=== PATIENT | male | born 1955 | race Two or more races ===

== ENCOUNTER 2021-08-28 20:58 | Inpatient (IN) | payer BC, OTHER ==
[~2021-08-28] VITALS: Ht 188 cm; Wt 105.0 kg
[2021-08-28 23:13] LABS: Basophils # (auto) 0.1 10 ^3/uL (0-0.2); Basophils % (auto) 0.6 % (0.0-2.0); Eosinophils # (auto) 0.3 10 ^3/uL (0-0.8); Eosinophils % (auto) 2.3 % (0.0-7.0); Hematocrit 41.6 % (41.0-53.0); Hemoglobin 13.6 g/dL (13.5-17.5); Lymphocytes # (auto) 1.5 10 ^3/uL (0.4-5.4); Lymphocytes % (auto) 10.8 % (10.0-50.0); Mean Corpuscular Hemoglobin 28.1 pg (28.0-32.0); Mean Corpuscular Hgb Conc. 32.7 g/dL (32.0-36.0); Monocytes # (auto) 0.9 10 ^3/uL (0-1.3); Monocytes % (auto) 6.5 % (0.0-12.0); Neutrophils # (auto) 11.3 10 ^3/uL (1.6-8.6); Neutrophils % (auto) 79.8 % (37.0-80.0); Nucleated Red Blood Cells % 0.1 %; Red Blood Cells 4.83 10^6/uL (4.5-5.90); Red Cell Distribution Width 13.7 % (11.8-14.3); White Blood Cell 14.1 10^3/uL (4.4-10.8)
[2021-08-28 23:31] LABS: Albumin 3.5 g/dL (3.4-5.0); Calcium 8.7 mg/dL (8.5-10.1); Potassium 4.6 mmol/L (3.5-5.1)
[2021-08-28 23:36] LABS: BUN/Creatinine Ratio 12.8; Bilirubin, Total 0.6 mg/dL (0.2-1.0); Total Protein 6.8 g/dL (6.4-8.2)
[2021-08-29] MEDS ORDERED: MORPHINE SULFATE INJECTION 2 MG/ML SYRG IV PRN (06:15)
[2021-08-29] MEDS ORDERED: DEXTROSE (50%) 50ML SYRG IV PRN (06:15)
[2021-08-29] MEDS ORDERED: NITROGLYCERIN 0.4 MG SL TAB SL PRN (06:15)
[2021-08-29] MEDS ORDERED: ACETAMINOPHEN 325 MG TAB PO PRN (06:15)
[2021-08-29] MEDS ORDERED: ONDANSETRON HCL 4 MG/2 ML VIAL IV PRN (06:15)
[2021-08-29] MEDS ORDERED: TEMAZEPAM 15 MG CAP PO PRN (06:15)
[2021-08-29] MEDS ORDERED: ENOXAPARIN SOD 100 MG/1 ML SYRINGE SC ONE (06:15)
[2021-08-29] MEDS: InsuLIN REG 1unit/0.01ml Soln (100units/ml) SC SCH ×4 (07:01→22:36)
[2021-08-29] MEDS: ACCU-CHEK COMFORT CURVE STRIP VI SCH ×4 (07:02→22:25)
[2021-08-29 08:55] VITALS: BP 142/89
[2021-08-29] MEDS ORDERED: LISINOPRIL 20 MG TAB PO SCH (10:00)
[2021-08-29] MEDS: METOPROLOL SUCCINATE XL 50 MG TAB PO SCH (10:11)
[2021-08-29] MEDS: ASPirin 81 mg TAB PO SCH (10:12)
[2021-08-29] MEDS ORDERED: METF-372 PO (10:40)
[2021-08-29] MEDS ORDERED: GABA300C10 PO (10:40)
[2021-08-29] MEDS ORDERED: INSU300I SC (10:40)
[2021-08-29] MEDS ORDERED: METO25TA93 PO (10:40)
[2021-08-29] MEDS ORDERED: GLIP10TA9 PO (10:40)
[2021-08-29] MEDS ORDERED: SIMV-8 PO (10:40)
[2021-08-29] MEDS ORDERED: LISI-706 PO (10:41)
[2021-08-29 13:00] VITALS: BP_SYST 113; BP_SYST 122; BP_DIAS 78; BP_DIAS 81
[2021-08-29] MEDS: GABAPENTIN 300 MG CAP PO SCH ×2 (14:13→22:24)
[2021-08-29 17:00] VITALS: BP 122/81
[2021-08-29 19:04] LABS: Cholesterol 176 mg/dL (< 200); HDL Cholesterol 39 mg/dL (40-59); LDL Cholesterol 106 mg/dL (< 100); Triglycerides 217 mg/dL (< 150)
[2021-08-29 22:00] VITALS: BP 117/76
[2021-08-29] MEDS: ATORVASTATIN 20 MG TAB PO SCH (22:24)
[2021-08-30 05:00] VITALS: BP 116/51
[2021-08-30] MEDS: GABAPENTIN 300 MG CAP PO SCH ×3 (06:43→22:11)
[2021-08-30] MEDS: ACCU-CHEK COMFORT CURVE STRIP VI SCH ×4 (06:43→22:12)
[2021-08-30] MEDS: InsuLIN REG 1unit/0.01ml Soln (100units/ml) SC SCH ×4 (07:13→22:42)
[2021-08-30 07:42] LABS: Basophils # (auto) 0.1 10 ^3/uL (0-0.2); Basophils % (auto) 0.7 % (0.0-2.0); Eosinophils # (auto) 0.8 10 ^3/uL (0-0.8); Eosinophils % (auto) 9.1 % (0.0-7.0); Hematocrit 40.6 % (41.0-53.0); Hemoglobin 13.7 g/dL (13.5-17.5); Lymphocytes # (auto) 2.2 10 ^3/uL (0.4-5.4); Lymphocytes % (auto) 25.9 % (10.0-50.0); Mean Corpuscular Hgb Conc. 33.8 g/dL (32.0-36.0); Mean Corpuscular Volume 85.9 fL (80.0-100.0); Monocytes # (auto) 0.9 10 ^3/uL (0-1.3); Monocytes % (auto) 10.8 % (0.0-12.0); Neutrophils # (auto) 4.5 10 ^3/uL (1.6-8.6); Neutrophils % (auto) 53.5 % (37.0-80.0); Red Blood Cells 4.73 10^6/uL (4.5-5.90); Red Cell Distribution Width 13.8 % (11.8-14.3); White Blood Cell 8.4 10^3/uL (4.4-10.8)
[2021-08-30 08:04] LABS: BUN/Creatinine Ratio 17.6; Calcium 8.7 mg/dL (8.5-10.1)
[2021-08-30 08:15] LABS: Potassium 5.6 mmol/L (3.5-5.1)
[2021-08-30 09:00] VITALS: BP 126/78
[2021-08-30] MEDS ORDERED: IOHEXOL 350 MG/ML 100ML IJ ONE (09:10)
[2021-08-30] MEDS ORDERED: SODIUM ZIRCONIUM CYCL 10 GM PAK PO ONE (09:15)
[2021-08-30] MEDS: ASPirin 81 mg TAB PO SCH (10:06)
[2021-08-30] MEDS: METOPROLOL SUCCINATE XL 50 MG TAB PO SCH (10:07)
[2021-08-30] MEDS: ENOXAPARIN SOD 40 MG/0.4 ML SYRINGE SC SCH (10:07)
[2021-08-30 13:00] VITALS: BP 133/76
[2021-08-30] MEDS ORDERED: SODIUM CHLORIDE 0.9% 1,000 ML IV SCH (13:00)
[2021-08-30] MEDS ORDERED: FUROSEMIDE 20 MG TAB PO ONE (16:45)
[2021-08-30 17:00] VITALS: BP 135/81
[2021-08-30 18:11] LABS: INR 1.02 (0.9-1.15)
[2021-08-30] MEDS ORDERED: SODIUM ZIRCONIUM CYCL 10 GM PAK PO SCH (22:00)
[2021-08-30] MEDS: ATORVASTATIN 20 MG TAB PO SCH (22:11)
[2021-08-31] MEDS: ACCU-CHEK COMFORT CURVE STRIP VI SCH ×4 (06:55→22:25)
[2021-08-31] MEDS: GABAPENTIN 300 MG CAP PO SCH ×3 (06:56→22:25)
[2021-08-31] MEDS: InsuLIN REG 1unit/0.01ml Soln (100units/ml) SC SCH ×4 (07:06→22:30)
[2021-08-31] MEDS: METOPROLOL SUCCINATE XL 50 MG TAB PO SCH (09:16)
[2021-08-31] MEDS: ENOXAPARIN SOD 40 MG/0.4 ML SYRINGE SC SCH (09:17)
[2021-08-31] MEDS: ASPirin 81 mg TAB PO SCH (09:18)
[2021-08-31 09:41] LABS: Basophils # (auto) 0 10 ^3/uL (0-0.2); Basophils % (auto) 0.5 % (0.0-2.0); Eosinophils # (auto) 0.4 10 ^3/uL (0-0.8); Eosinophils % (auto) 5.7 % (0.0-7.0); Hematocrit 41.1 % (41.0-53.0); Hemoglobin 13.7 g/dL (13.5-17.5); Lymphocytes # (auto) 1.9 10 ^3/uL (0.4-5.4); Lymphocytes % (auto) 26.8 % (10.0-50.0); Mean Corpuscular Hemoglobin 28.6 pg (28.0-32.0); Mean Corpuscular Hgb Conc. 33.4 g/dL (32.0-36.0); Mean Corpuscular Volume 85.7 fL (80.0-100.0); Monocytes # (auto) 0.7 10 ^3/uL (0-1.3); Monocytes % (auto) 9.8 % (0.0-12.0); Neutrophils # (auto) 4.1 10 ^3/uL (1.6-8.6); Neutrophils % (auto) 57.2 % (37.0-80.0); Nucleated Red Blood Cells % 0.1 %; Red Cell Distribution Width 13.5 % (11.8-14.3); White Blood Cell 7.2 10^3/uL (4.4-10.8)
[2021-08-31 09:55] LABS: Calcium 8.6 mg/dL (8.5-10.1); Potassium 3.8 mmol/L (3.5-5.1)
[2021-08-31 10:00] LABS: INR 1.06 (0.9-1.15); Partial Thromboplastin Time 24.6 sec (23.6-33.0)
[2021-08-31 10:01] LABS: BUN/Creatinine Ratio 15.8
[2021-08-31 13:00] VITALS: BP 136/84
[2021-08-31 17:05] VITALS: BP 128/78
[2021-08-31 22:00] VITALS: BP 142/86
[2021-08-31] MEDS: ATORVASTATIN 20 MG TAB PO SCH (22:25)
[2021-09-01 01:54] LABS: Urine WBC None Seen /hpf (0 - 3)
[2021-09-01 02:31] LABS: Urine Bacteria NONE SEEN /hpf (None Seen); Urine Blood Negative /uL (Negative); Urine Specific Gravity 1.004 (1.001-1.035)
[2021-09-01] MEDS: GABAPENTIN 300 MG CAP PO SCH ×2 (04:40→14:39)
[2021-09-01 05:17] VITALS: BP 128/79
[2021-09-01] MEDS: ACCU-CHEK COMFORT CURVE STRIP VI SCH ×2 (06:26→12:32)
[2021-09-01] MEDS: InsuLIN REG 1unit/0.01ml Soln (100units/ml) SC SCH ×2 (06:26→12:33)
[2021-09-01] MEDS ORDERED: IODIXANOL 320MG/ML 100ML BTL IV ONE ×2 (07:58→09:50)
[2021-09-01 08:00] VITALS: BP 129/80
[2021-09-01 09:00] VITALS: BP 129/80
[2021-09-01] MEDS ORDERED: ANGIOMAX 250 MG VIAL IV ONE (09:43)
[2021-09-01] MEDS ORDERED: fentaNYL CITRATE 100 MCG/2 ML VL ONE (09:44)
[2021-09-01] MEDS ORDERED: VERAPAMIL 2.5MG/ML INJ 2ML VIAL IV ONE (09:44)
[2021-09-01] MEDS ORDERED: MIDAZOLAM HCL 2MG/2ML 2ml VIAL (1mg/ml) ONE (09:44)
[2021-09-01] MEDS ORDERED: SODIUM CHL 0.9% 0 ML ONE (09:44)
[2021-09-01] MEDS ORDERED: HEPARIN SODIUM (PORCINE) 5000 UNITS/ML 1ML VIAL ONE (09:44)
[2021-09-01] MEDS ORDERED: LIDOCAINE 2%HCL (LOCAL ANESTH.) INJ 20ML MDV ONE (09:50)
[2021-09-01] MEDS: ENOXAPARIN SOD 40 MG/0.4 ML SYRINGE SC SCH (10:00)
[2021-09-01] MEDS: ASPirin 81 mg TAB PO SCH (12:31)
[2021-09-01] MEDS: METOPROLOL SUCCINATE XL 50 MG TAB PO SCH (12:32)
[2021-09-01 13:00] VITALS: BP 165/80
[2021-09-01] MEDS ORDERED: SODIUM CHLOR 0.9% PF (SALINE LOCK) 10ML VIAL/SYR IV SCH (14:00)
[2021-09-02] MEDS ORDERED: SIMV-8 PO (10:20)
[2021-09-02] MEDS ORDERED: CLOP75TA28 PO (10:20)
[2021-09-02] MEDS ORDERED: ASPI-543 PO (10:20)
== END 2021-09-01 17:40 | disposition home or self-care (01) | DRG 280 ==
LOC: ER 20:58 → EDUNIT# 20:58 → EDBD 20:58 → EDSEX 20:58 → TELE 08-29 06:06 → TELE-WESTW 08-29 08:56
PROVIDERS: ADMIT Nurse Practitioner; ATTEND Hospitalist
PROC: 4A023N7 Measurement of Cardiac Sampling and Pressure, Left Heart, Percutaneous Approach (ICD-10-PCS; principal; 2021-09-01)
PROC: B211YZZ Fluoroscopy of Multiple Coronary Arteries using Other Contrast (ICD-10-PCS; 2021-09-01)
DX: I21.4 Non-ST elevation (NSTEMI) myocardial infarction (principal); J96.00 Acute respiratory failure, unspecified whether with hypoxia or hypercapnia; I10 Essential (primary) hypertension; Z20.822 Contact with and (suspected) exposure to COVID-19; E11.65 Type 2 diabetes mellitus with hyperglycemia; E66.9 Obesity, unspecified; E78.00 Pure hypercholesterolemia, unspecified; E78.5 Hyperlipidemia, unspecified; F12.90 Cannabis use, unspecified, uncomplicated; I25.10 Atherosclerotic heart disease of native coronary artery without angina pectoris; Z68.29 Body mass index [BMI] 29.0-29.9, adult; Z80.42 Family history of malignant neoplasm of prostate; Z80.8 Family history of malignant neoplasm of other organs or systems; Z83.3 Family history of diabetes mellitus; Z85.820 Personal history of malignant melanoma of skin
CPT/HCPCS: 36415; 71045; 71275; 80048; 80053; 80061; 81001; 82962; 83036; 83880; 84484; 85025; 85379; 85610; 85730; 86850; 86900; 86901; 87426; 93005; 93306; 93458; 96372; 99152; 99291; G0378; J1642; J1815; J2250; Q9967

== ENCOUNTER 2021-09-03 00:52 | Inpatient (IN) | payer BC ==
[~2021-09-03] VITALS: Ht 182.9 cm; Wt 99.5 kg
[~2021-09-03 00:52] MED LIST: ASPI-543 PO; CLOP75TA28 PO; GABA300C10 PO; GLIP10TA9 PO; INSU300I SC; LISI-706 PO; METF-372 PO; METO25TA93 PO; SIMV-8 PO
[2021-09-03 02:23] LABS: Basophils # (auto) 0 10 ^3/uL (0-0.2); Basophils % (auto) 0.3 % (0.0-2.0); Eosinophils # (auto) 0.4 10 ^3/uL (0-0.8); Eosinophils % (auto) 3.2 % (0.0-7.0); Hematocrit 41.5 % (41.0-53.0); Hemoglobin 13.7 g/dL (13.5-17.5); Lymphocytes # (auto) 1.9 10 ^3/uL (0.4-5.4); Mean Corpuscular Hemoglobin 28.5 pg (28.0-32.0); Mean Corpuscular Volume 86.2 fL (80.0-100.0); Monocytes % (auto) 8.5 % (0.0-12.0); Neutrophils # (auto) 8.4 10 ^3/uL (1.6-8.6); Red Blood Cells 4.81 10^6/uL (4.5-5.90); Red Cell Distribution Width 13.7 % (11.8-14.3); White Blood Cell 11.7 10^3/uL (4.4-10.8)
[2021-09-03 02:28] LABS: Albumin 3.4 g/dL (3.4-5.0); Calcium 8.9 mg/dL (8.5-10.1); Magnesium 2.5 mg/dL (1.6-2.6); Potassium 3.7 mmol/L (3.5-5.1)
[2021-09-03 02:33] LABS: BUN/Creatinine Ratio 12.5; Bilirubin, Total 0.4 mg/dL (0.2-1.0); Total Protein 6.9 g/dL (6.4-8.2)
[2021-09-03] MEDS ORDERED: ALBUTEROL SULF 2.5 MG/0.5ML(0.5%) NEB SOLN NEB ONE (03:30)
[2021-09-03] MEDS ORDERED: LORazepam 2MG/ML-1ML VIAL IV ONE (06:15)
[2021-09-03] MEDS ORDERED: LORazepam 2MG/ML-1ML VIAL IV PRN (06:30)
[2021-09-03] MEDS ORDERED: ONDANSETRON HCL 4 MG/2 ML VIAL IV PRN (06:30)
[2021-09-03] MEDS ORDERED: HYDROcodone-ACET 5/325MG TAB PO PRN (06:30)
[2021-09-03] MEDS ORDERED: DOCUSATE SOD 100 MG CAP PO PRN (06:30)
[2021-09-03] MEDS ORDERED: DEXTROSE (50%) 50ML SYRG IV PRN ×2 (06:30→13:45)
[2021-09-03] MEDS ORDERED: hydrALAZINE HCL 20 MG/ML VL IV PRN (06:30)
[2021-09-03] MEDS ORDERED: FUROSEMIDE 40 MG/4 ML VIAL ONE (06:48)
[2021-09-03] MEDS ORDERED: FUROSEMIDE 40 MG/4 ML VIAL IV ONE (07:00)
[2021-09-03] MEDS ORDERED: methylPREDNISolone SOD SUCC 125 MG/2 ML VL IV ONE (07:15)
[2021-09-03] MEDS ORDERED: MORPHINE SULFATE INJECTION 2 MG/ML SYRG IV PRN (07:15)
[2021-09-03] MEDS ORDERED: NITROGLYCERIN 0.4 MG SL TAB SL PRN (07:15)
[2021-09-03] MEDS ORDERED: NITROGLYCERIN 2% OINT 1GM PKG TD ONE (07:15)
[2021-09-03 07:17] LABS: Basophils # (auto) 0.1 10 ^3/uL (0-0.2); Basophils % (auto) 0.7 % (0.0-2.0); Eosinophils # (auto) 0.3 10 ^3/uL (0-0.8); Eosinophils % (auto) 3.6 % (0.0-7.0); Hematocrit 42.8 % (41.0-53.0); Hemoglobin 14.4 g/dL (13.5-17.5); Lymphocytes # (auto) 2.1 10 ^3/uL (0.4-5.4); Lymphocytes % (auto) 25.3 % (10.0-50.0); Mean Corpuscular Hgb Conc. 33.5 g/dL (32.0-36.0); Mean Corpuscular Volume 86.5 fL (80.0-100.0); Monocytes # (auto) 0.9 10 ^3/uL (0-1.3); Monocytes % (auto) 10.4 % (0.0-12.0); Neutrophils # (auto) 5.1 10 ^3/uL (1.6-8.6); Nucleated Red Blood Cells % 0.1 %; Red Blood Cells 4.95 10^6/uL (4.5-5.90); Red Cell Distribution Width 13.7 % (11.8-14.3); White Blood Cell 8.4 10^3/uL (4.4-10.8)
[2021-09-03] MEDS ORDERED: NITROGLYCERIN 50MG/250ML 250 ML IV ONE (07:18)
[2021-09-03] MEDS: NITROGLYCERIN 50MG/250ML 250 ML IV SCH (07:23)
[2021-09-03] MEDS ORDERED: ROCURONIUM 10MG/ML 10ML VIAL IV ONE (07:25)
[2021-09-03] MEDS ORDERED: ETOMIDATE (2MG/ML) 20ML VIAL IV ONE ×2 (07:25→08:30)
[2021-09-03] MEDS ORDERED: ALBUTEROL SULF 2.5 MG/0.5ML(0.5%) NEB SOLN NEB PRN (07:30)
[2021-09-03] MEDS ORDERED: IPRATROPIUM BROM 0.5 MG/2.5ML INH SOL NEB PRN (07:30)
[2021-09-03 07:31] LABS: Potassium 4.1 mmol/L (3.5-5.1)
[2021-09-03 07:38] LABS: Albumin 3.7 g/dL (3.4-5.0); BUN/Creatinine Ratio 13.9; Bilirubin, Total 0.4 mg/dL (0.2-1.0); Calcium 9.1 mg/dL (8.5-10.1); Total Protein 6.9 g/dL (6.4-8.2)
[2021-09-03] MEDS ORDERED: ALBUTEROL SULF 2.5 MG/0.5ML(0.5%) NEB SOLN ONE (07:49)
[2021-09-03] MEDS ORDERED: IPRATROPIUM BROM 0.5 MG/2.5ML INH SOL ONE (07:50)
[2021-09-03] MEDS ORDERED: MIDAZOLAM DRIP 50 mg/50mL 50 ML IV ONE (08:03)
[2021-09-03] MEDS: MIDAZOLAM DRIP 50 mg/50mL 50 ML IV SCH ×2 (08:13→16:05)
[2021-09-03 08:15] VITALS: BP 188/119
[2021-09-03] MEDS ORDERED: SUCCINYLCHOLINE CHLORIDE 20 MG/ML 10ML VIAL IV ONE (08:30)
[2021-09-03] MEDS: cefTRIAXone 1GM/50ML D5W 50 ML IV SCH (08:57)
[2021-09-03] MEDS ORDERED: IOHEXOL 350 MG/ML 100ML IJ ONE (09:45)
[2021-09-03] MEDS: FUROSEMIDE 40 MG/4 ML VIAL IV SCH (09:57)
[2021-09-03] MEDS: ZINC SULFATE 220mg CAP or TAB PO SCH (10:00)
[2021-09-03] MEDS ORDERED: FAMOTIDINE (10MG/ML) 2ML VL IV SCH (10:00)
[2021-09-03] MEDS: ASCORBIC ACID 500 MG TAB PO SCH ×2 (10:00→22:00)
[2021-09-03] MEDS: ASPirin 81 mg TAB PO SCH (10:00)
[2021-09-03] MEDS: MULTIPLE VITAMIN TAB PO SCH (10:00)
[2021-09-03] MEDS ORDERED: CARVEDILOL 12.5 MG TAB PO SCH (10:00)
[2021-09-03] MEDS ORDERED: METOPROLOL TARTRATE 25 MG TAB PO SCH (10:00)
[2021-09-03] MEDS: ENOXAPARIN SOD 100 MG/1 ML SYRINGE SC SCH ×2 (10:21→22:00)
[2021-09-03 11:18] VITALS: BP 114/76
[2021-09-03] MEDS ORDERED: ACCU-CHEK COMFORT CURVE STRIP VI SCH (12:00)
[2021-09-03] MEDS ORDERED: InsuLIN REG 1unit/0.01ml Soln (100units/ml) SC SCH (12:00)
[2021-09-03] MEDS ORDERED: fentaNYL Drip 2500mCg/250mlNS 250 ML IV ONE (12:13)
[2021-09-03] MEDS: fentaNYL Drip 2500mCg/250mlNS 250 ML IV SCH (12:17)
[2021-09-03] MEDS ORDERED: SODIUM BICARBONATE 8.4 % INJ 50ML VIAL IV ONE (12:45)
[2021-09-03] MEDS: SODIUM CHLOR 0.9% PF (SALINE LOCK) 10ML VIAL/SYR IV SCH ×2 (13:52→22:23)
[2021-09-03] MEDS ORDERED: NOREPINEPHRINE 8 MG/250ML KIT 250 ML IV ONE (13:55)
[2021-09-03] MEDS: NOREPINEPHRINE 8 MG/250ML KIT 250 ML IV SCH (14:41)
[2021-09-03] MEDS ORDERED: CLOPIDOGREL BISULFATE 75 MG TAB PO ONE (14:45)
[2021-09-03] MEDS ORDERED: ATORVASTATIN 20 MG TAB PO ONE (15:00)
[2021-09-03] MEDS: methylPREDNISolone SOD SUCC 40 MG/ML VL IV SCH ×3 (15:47→22:00)
[2021-09-03] MEDS: AZITHROMYCIN 500MG/ 250ML 250 ML IV SCH (15:47)
[2021-09-03] MEDS: ACCU-CHEK COMFORT CURVE STRIP VI SCH ×3 (16:00→23:59)
[2021-09-03] MEDS: InsuLIN REG 1unit/0.01ml Soln (100units/ml) SC SCH ×3 (16:01→23:59)
[2021-09-03] MEDS ORDERED: EPINEPHrine HCL 1 MG/10 ML SYRG IV ONE (16:12)
[2021-09-03] MEDS: ACETAMINOPHEN 325 MG TAB PO PRN ×2 (17:44→23:30)
[2021-09-03 18:06] VITALS: BP 172/109
[2021-09-03] MEDS: FAMOTIDINE (10MG/ML) 2ML VL IV SCH (22:00)
[2021-09-03 22:13] VITALS: BP 99/60
[2021-09-03] MEDS ORDERED: InsuLIN REG 1unit/0.01ml Soln (100units/ml) SC ONE (22:30)
[2021-09-04] MEDS ORDERED: DEXTROSE (50%) 50ML SYRG IV PRN ×2 (00:30→10:30)
[2021-09-04] MEDS ORDERED: InsuLIN R (HUMAN) 100 UNITS in SODIUM CHL 0.9% 99 ML IV SCH ×2 (01:00→02:30)
[2021-09-04] MEDS: ACCU-CHEK COMFORT CURVE STRIP VI SCH ×11 (01:00→17:39)
[2021-09-04] MEDS ORDERED: InsuLIN REG 1unit/0.01ml Soln (100units/ml) ONE (01:13)
[2021-09-04 02:32] VITALS: BP 104/69
[2021-09-04] MEDS: MIDAZOLAM DRIP 50 mg/50mL 50 ML IV SCH ×2 (04:30→14:30)
[2021-09-04] MEDS: methylPREDNISolone SOD SUCC 40 MG/ML VL IV SCH ×3 (06:00→22:28)
[2021-09-04] MEDS: SODIUM CHLOR 0.9% PF (SALINE LOCK) 10ML VIAL/SYR IV SCH ×3 (06:09→22:03)
[2021-09-04 06:35] VITALS: BP 82/57
[2021-09-04] MEDS ORDERED: INSULIN LANTUS (GLARGINE) 1 /0.01ml (100units/ml) SC SCH (07:00)
[2021-09-04] MEDS: NITROGLYCERIN 50MG/250ML 250 ML IV SCH (07:15)
[2021-09-04 08:13] LABS: Basophils # (auto) 0.1 10 ^3/uL (0-0.2); Basophils % (auto) 0.3 % (0.0-2.0); Eosinophils # (auto) 0 10 ^3/uL (0-0.8); Eosinophils % (auto) 0.2 % (0.0-7.0); Hematocrit 38.4 % (41.0-53.0); Hemoglobin 12.6 g/dL (13.5-17.5); Lymphocytes % (auto) 9.8 % (10.0-50.0); Mean Corpuscular Hemoglobin 28.2 pg (28.0-32.0); Mean Corpuscular Hgb Conc. 32.8 g/dL (32.0-36.0); Mean Corpuscular Volume 85.9 fL (80.0-100.0); Monocytes # (auto) 1.7 10 ^3/uL (0-1.3); Monocytes % (auto) 8.7 % (0.0-12.0); Neutrophils # (auto) 16.2 10 ^3/uL (1.6-8.6); Nucleated Red Blood Cells % 0.1 %; Red Blood Cells 4.47 10^6/uL (4.5-5.90); Red Cell Distribution Width 13.4 % (11.8-14.3)
[2021-09-04 08:37] LABS: Albumin 2.7 g/dL (3.4-5.0); Calcium 8.3 mg/dL (8.5-10.1); Potassium 3.7 mmol/L (3.5-5.1)
[2021-09-04 08:43] LABS: BUN/Creatinine Ratio 11.6; Bilirubin, Total 0.6 mg/dL (0.2-1.0)
[2021-09-04] MEDS: cefTRIAXone 1GM/50ML D5W 50 ML IV SCH (09:33)
[2021-09-04] MEDS: FUROSEMIDE 40 MG/4 ML VIAL IV SCH (09:33)
[2021-09-04] MEDS: FAMOTIDINE (10MG/ML) 2ML VL IV SCH (09:34)
[2021-09-04] MEDS: ZINC SULFATE 220mg CAP or TAB PO SCH (09:34)
[2021-09-04] MEDS: ASPirin 81 mg TAB PO SCH (09:34)
[2021-09-04] MEDS: ENOXAPARIN SOD 100 MG/1 ML SYRINGE SC SCH (09:35)
[2021-09-04] MEDS: CLOPIDOGREL BISULFATE 75 MG TAB PO SCH (09:35)
[2021-09-04] MEDS: MULTIPLE VITAMIN TAB PO SCH (09:35)
[2021-09-04] MEDS: ASCORBIC ACID 500 MG TAB PO SCH ×2 (09:35→22:00)
[2021-09-04 10:08] LABS: Urine Bacteria NONE SEEN /hpf (None Seen); Urine Blood 3+ /uL (Negative); Urine Mucus FEW (None Seen); Urine Specific Gravity 1.045 (1.001-1.035); Urine WBC 4 /hpf (0 - 3)
[2021-09-04] MEDS: AZITHROMYCIN 500MG/ 250ML 250 ML IV SCH (10:13)
[2021-09-04] MEDS ORDERED: INSULIN LANTUS (GLARGINE) 1 /0.01ml (100units/ml) SC ONE (10:30)
[2021-09-04 10:41] VITALS: BP 109/68
[2021-09-04] MEDS: InsuLIN REG 1unit/0.01ml Soln (100units/ml) SC SCH ×2 (12:07→17:39)
[2021-09-04] MEDS: ACETAMINOPHEN 325 MG TAB PO PRN ×2 (12:15→16:38)
[2021-09-04] MEDS: fentaNYL Drip 2500mCg/250mlNS 250 ML IV SCH (12:44)
[2021-09-04 12:45] VITALS: BP 100/65
[2021-09-04] MEDS: NOREPINEPHRINE 8 MG/250ML KIT 250 ML IV SCH (17:48)
[2021-09-04 18:27] VITALS: BP 126/67
[2021-09-04 21:12] VITALS: BP 111/72
[2021-09-04] MEDS: ATORVASTATIN 20 MG TAB PO SCH (22:28)
[2021-09-05] VITALS (11 sets, daily range): BP systolic 106–123; BP diastolic 62–72
[2021-09-05] MEDS: MIDAZOLAM DRIP 50 mg/50mL 50 ML IV SCH ×3 (00:30→20:30)
[2021-09-05] MEDS: ACCU-CHEK COMFORT CURVE STRIP VI SCH ×4 (01:28→18:26)
[2021-09-05] MEDS: InsuLIN REG 1unit/0.01ml Soln (100units/ml) SC SCH ×4 (01:33→18:27)
[2021-09-05] MEDS: SODIUM CHLOR 0.9% PF (SALINE LOCK) 10ML VIAL/SYR IV SCH ×3 (06:08→21:43)
[2021-09-05] MEDS: methylPREDNISolone SOD SUCC 40 MG/ML VL IV SCH ×3 (06:42→21:41)
[2021-09-05] MEDS: NITROGLYCERIN 50MG/250ML 250 ML IV SCH (07:15)
[2021-09-05 07:51] LABS: Basophils # (auto) 0 10 ^3/uL (0-0.2); Basophils % (auto) 0.1 % (0.0-2.0); Eosinophils # (auto) 0 10 ^3/uL (0-0.8); Hematocrit 34.4 % (41.0-53.0); Hemoglobin 11.6 g/dL (13.5-17.5); Lymphocytes # (auto) 1.1 10 ^3/uL (0.4-5.4); Lymphocytes % (auto) 7.4 % (10.0-50.0); Mean Corpuscular Hgb Conc. 33.7 g/dL (32.0-36.0); Monocytes % (auto) 6.3 % (0.0-12.0); Neutrophils % (auto) 86.2 % (37.0-80.0); Red Cell Distribution Width 14.1 % (11.8-14.3); White Blood Cell 15.1 10^3/uL (4.4-10.8)
[2021-09-05 08:12] LABS: BUN/Creatinine Ratio 21.6; Calcium 7.8 mg/dL (8.5-10.1); Potassium 4.7 mmol/L (3.5-5.1)
[2021-09-05] MEDS: FUROSEMIDE 40 MG/4 ML VIAL IV SCH ×2 (08:15→18:28)
[2021-09-05] MEDS: cefTRIAXone 1GM/50ML D5W 50 ML IV SCH (09:30)
[2021-09-05] MEDS: MULTIPLE VITAMIN TAB PO SCH (10:00)
[2021-09-05] MEDS: CLOPIDOGREL BISULFATE 75 MG TAB PO SCH (10:00)
[2021-09-05] MEDS: ZINC SULFATE 220mg CAP or TAB PO SCH (10:00)
[2021-09-05] MEDS ORDERED: ENOXAPARIN SOD 100 MG/1 ML SYRINGE SC SCH (10:00)
[2021-09-05] MEDS: ASCORBIC ACID 500 MG TAB PO SCH ×2 (10:00→21:41)
[2021-09-05] MEDS: AZITHROMYCIN 500MG/ 250ML 250 ML IV SCH (10:00)
[2021-09-05] MEDS: FAMOTIDINE (10MG/ML) 2ML VL IV SCH (10:00)
[2021-09-05] MEDS: ASPirin 81 mg TAB PO SCH (10:00)
[2021-09-05] MEDS: fentaNYL Drip 2500mCg/250mlNS 250 ML IV SCH (12:15)
[2021-09-05] MEDS: NOREPINEPHRINE 8 MG/250ML KIT 250 ML IV SCH (14:15)
[2021-09-05] MEDS: ACETAMINOPHEN 325 MG TAB PO PRN (15:22)
[2021-09-05] MEDS: ENOXAPARIN SOD 100 MG/1 ML SYRINGE SC SCH (21:42)
[2021-09-05] MEDS: INSULIN LANTUS (GLARGINE) 1 /0.01ml (100units/ml) SC SCH (21:44)
[2021-09-05] MEDS: ATORVASTATIN 20 MG TAB PO SCH (21:45)
[2021-09-05] MEDS: DOXYCYCLINE 100MG/250ML 250 ML IV SCH (22:02)
[2021-09-06] VITALS (9 sets, daily range): BP systolic 93–162; BP diastolic 18–106
[2021-09-06] MEDS: MIDAZOLAM DRIP 50 mg/50mL 50 ML IV SCH ×2 (00:05→14:43)
[2021-09-06] MEDS: InsuLIN REG 1unit/0.01ml Soln (100units/ml) SC SCH ×5 (00:30→23:49)
[2021-09-06] MEDS: ACCU-CHEK COMFORT CURVE STRIP VI SCH ×4 (00:31→18:03)
[2021-09-06] MEDS: fentaNYL Drip 2500mCg/250mlNS 250 ML IV SCH (05:17)
[2021-09-06] MEDS: methylPREDNISolone SOD SUCC 40 MG/ML VL IV SCH ×3 (06:02→22:00)
[2021-09-06] MEDS: FUROSEMIDE 40 MG/4 ML VIAL IV SCH ×2 (06:02→18:03)
[2021-09-06] MEDS: SODIUM CHLOR 0.9% PF (SALINE LOCK) 10ML VIAL/SYR IV SCH ×3 (06:15→22:00)
[2021-09-06 08:35] LABS: Basophils # (auto) 0 10 ^3/uL (0-0.2); Basophils % (auto) 0.2 % (0.0-2.0); Eosinophils # (auto) 0 10 ^3/uL (0-0.8); Hematocrit 39.6 % (41.0-53.0); Hemoglobin 13.1 g/dL (13.5-17.5); Lymphocytes # (auto) 0.9 10 ^3/uL (0.4-5.4); Lymphocytes % (auto) 6.9 % (10.0-50.0); Mean Corpuscular Hemoglobin 28.6 pg (28.0-32.0); Mean Corpuscular Volume 86.6 fL (80.0-100.0); Monocytes # (auto) 0.7 10 ^3/uL (0-1.3); Monocytes % (auto) 5.6 % (0.0-12.0); Neutrophils # (auto) 11.5 10 ^3/uL (1.6-8.6); Neutrophils % (auto) 87.3 % (37.0-80.0); Red Blood Cells 4.57 10^6/uL (4.5-5.90); Red Cell Distribution Width 13.8 % (11.8-14.3); White Blood Cell 13.2 10^3/uL (4.4-10.8)
[2021-09-06 08:42] LABS: BUN/Creatinine Ratio 28.6; Calcium 8.3 mg/dL (8.5-10.1); Potassium 4.1 mmol/L (3.5-5.1)
[2021-09-06] MEDS: ZINC SULFATE 220mg CAP or TAB PO SCH (09:50)
[2021-09-06] MEDS: cefTRIAXone 1GM/50ML D5W 50 ML IV SCH (09:50)
[2021-09-06] MEDS: FAMOTIDINE (10MG/ML) 2ML VL IV SCH (09:50)
[2021-09-06] MEDS: ASPirin 81 mg TAB PO SCH (09:50)
[2021-09-06] MEDS: CLOPIDOGREL BISULFATE 75 MG TAB PO SCH (10:00)
[2021-09-06] MEDS: ASCORBIC ACID 500 MG TAB PO SCH ×2 (10:00→22:00)
[2021-09-06] MEDS: MULTIPLE VITAMIN TAB PO SCH (10:00)
[2021-09-06] MEDS: CARVEDILOL 3.125 MG TAB PO SCH ×2 (10:00→22:00)
[2021-09-06] MEDS: ENOXAPARIN SOD 100 MG/1 ML SYRINGE SC SCH ×2 (10:00→22:00)
[2021-09-06] MEDS: DOXYCYCLINE 100MG/250ML 250 ML IV SCH (10:01)
[2021-09-06] MEDS: NITROGLYCERIN 50MG/250ML 250 ML IV SCH (10:01)
[2021-09-06] MEDS ORDERED: DEXTROSE (50%) 50ML SYRG IV PRN (11:15)
[2021-09-06 13:05] LABS: Basophils # (auto) 0 10 ^3/uL (0-0.2); Basophils % (auto) 0.1 % (0.0-2.0); Eosinophils # (auto) 0 10 ^3/uL (0-0.8); Hematocrit 36.1 % (41.0-53.0); Hemoglobin 11.8 g/dL (13.5-17.5); Lymphocytes # (auto) 0.9 10 ^3/uL (0.4-5.4); Lymphocytes % (auto) 7.4 % (10.0-50.0); Mean Corpuscular Hemoglobin 28.7 pg (28.0-32.0); Mean Corpuscular Hgb Conc. 32.7 g/dL (32.0-36.0); Mean Corpuscular Volume 87.9 fL (80.0-100.0); Monocytes # (auto) 0.9 10 ^3/uL (0-1.3); Monocytes % (auto) 7.5 % (0.0-12.0); Neutrophils # (auto) 10.3 10 ^3/uL (1.6-8.6); Red Blood Cells 4.11 10^6/uL (4.5-5.90); Red Cell Distribution Width 13.9 % (11.8-14.3); White Blood Cell 12.1 10^3/uL (4.4-10.8)
[2021-09-06 13:20] LABS: Creatinine, Urine 102 mg/dL (30.0-125.0); Sodium Urine 20 mmol/L (40-220)
[2021-09-06 13:33] LABS: Protein, Urine 146.6 mg/dL (0.0-11.9)
[2021-09-06] MEDS: NOREPINEPHRINE 8 MG/250ML KIT 250 ML IV SCH (14:15)
[2021-09-06 20:16] LABS: Basophils # (auto) 0 10 ^3/uL (0-0.2); Basophils % (auto) 0.2 % (0.0-2.0); Eosinophils # (auto) 0 10 ^3/uL (0-0.8); Hematocrit 37.2 % (41.0-53.0); Hemoglobin 12.4 g/dL (13.5-17.5); Lymphocytes # (auto) 1.1 10 ^3/uL (0.4-5.4); Lymphocytes % (auto) 11.1 % (10.0-50.0); Mean Corpuscular Hgb Conc. 33.3 g/dL (32.0-36.0); Monocytes # (auto) 0.6 10 ^3/uL (0-1.3); Monocytes % (auto) 6.6 % (0.0-12.0); Neutrophils % (auto) 82.1 % (37.0-80.0); Red Blood Cells 4.27 10^6/uL (4.5-5.90); White Blood Cell 9.7 10^3/uL (4.4-10.8)
[2021-09-06] MEDS ORDERED: HEPARIN DRIP/D5W 100UNITS/ML 250 ML IV SCH (20:45)
[2021-09-06] MEDS: ATORVASTATIN 20 MG TAB PO SCH (22:00)
[2021-09-06 22:18] LABS: INR 1.07 (0.9-1.15); Partial Thromboplastin Time 27.6 sec (23.6-33.0)
[2021-09-06] MEDS: ACETAMINOPHEN 325 MG TAB PO PRN (23:03)
[2021-09-06] MEDS: INSULIN LANTUS (GLARGINE) 1 /0.01ml (100units/ml) SC SCH (23:30)
[2021-09-07] MEDS: ACCU-CHEK COMFORT CURVE STRIP VI SCH ×4 (00:04→18:00)
[2021-09-07 01:08] LABS: Basophils # (auto) 0 10 ^3/uL (0-0.2); Basophils % (auto) 0.2 % (0.0-2.0); Eosinophils # (auto) 0 10 ^3/uL (0-0.8); Hematocrit 36.5 % (41.0-53.0); Lymphocytes % (auto) 10.9 % (10.0-50.0); Mean Corpuscular Hemoglobin 28.8 pg (28.0-32.0); Mean Corpuscular Hgb Conc. 32.9 g/dL (32.0-36.0); Mean Corpuscular Volume 87.5 fL (80.0-100.0); Monocytes # (auto) 0.7 10 ^3/uL (0-1.3); Monocytes % (auto) 7.4 % (0.0-12.0); Neutrophils # (auto) 7.2 10 ^3/uL (1.6-8.6); Neutrophils % (auto) 81.5 % (37.0-80.0); Red Blood Cells 4.17 10^6/uL (4.5-5.90); Red Cell Distribution Width 13.8 % (11.8-14.3); White Blood Cell 8.8 10^3/uL (4.4-10.8)
[2021-09-07 02:15] VITALS: BP 92/64
[2021-09-07] MEDS: MIDAZOLAM DRIP 50 mg/50mL 50 ML IV SCH ×2 (02:30→23:30)
[2021-09-07] MEDS: ACETAMINOPHEN 325 MG TAB PO PRN ×2 (05:05→17:53)
[2021-09-07 05:12] LABS: INR 1.12 (0.9-1.15); Partial Thromboplastin Time 29.4 sec (23.6-33.0)
[2021-09-07] MEDS: InsuLIN REG 1unit/0.01ml Soln (100units/ml) SC SCH ×3 (06:00→18:00)
[2021-09-07] MEDS ORDERED: HEPARIN SODIUM (PORCINE) 5000 UNITS/ML 1ML VIAL IV ONE (06:00)
[2021-09-07] MEDS: FUROSEMIDE 40 MG/4 ML VIAL IV SCH ×2 (06:26→18:00)
[2021-09-07] MEDS: methylPREDNISolone SOD SUCC 40 MG/ML VL IV SCH ×3 (06:26→22:00)
[2021-09-07] MEDS: SODIUM CHLOR 0.9% PF (SALINE LOCK) 10ML VIAL/SYR IV SCH ×3 (06:26→22:00)
[2021-09-07 06:57] LABS: Basophils # (auto) 0 10 ^3/uL (0-0.2); Basophils % (auto) 0.3 % (0.0-2.0); Eosinophils # (auto) 0 10 ^3/uL (0-0.8); Hemoglobin 11.5 g/dL (13.5-17.5); Lymphocytes % (auto) 13.4 % (10.0-50.0); Mean Corpuscular Hemoglobin 28.8 pg (28.0-32.0); Mean Corpuscular Hgb Conc. 32.9 g/dL (32.0-36.0); Mean Corpuscular Volume 87.6 fL (80.0-100.0); Monocytes # (auto) 0.6 10 ^3/uL (0-1.3); Monocytes % (auto) 7.7 % (0.0-12.0); Neutrophils % (auto) 78.6 % (37.0-80.0); Red Cell Distribution Width 13.8 % (11.8-14.3); White Blood Cell 7.6 10^3/uL (4.4-10.8)
[2021-09-07 07:30] LABS: Potassium 3.8 mmol/L (3.5-5.1)
[2021-09-07 07:31] LABS: BUN/Creatinine Ratio 36.2; Calcium 8.3 mg/dL (8.5-10.1)
[2021-09-07 08:10] VITALS: BP 111/70
[2021-09-07] MEDS: NITROGLYCERIN 50MG/250ML 250 ML IV SCH (08:28)
[2021-09-07] MEDS: ASPirin 81 mg TAB PO SCH (08:36)
[2021-09-07] MEDS: CARVEDILOL 3.125 MG TAB PO SCH ×2 (08:36→22:00)
[2021-09-07] MEDS: ZINC SULFATE 220mg CAP or TAB PO SCH (08:36)
[2021-09-07] MEDS: MULTIPLE VITAMIN TAB PO SCH (08:37)
[2021-09-07] MEDS: ASCORBIC ACID 500 MG TAB PO SCH ×2 (08:38→22:00)
[2021-09-07] MEDS: CLOPIDOGREL BISULFATE 75 MG TAB PO SCH (08:38)
[2021-09-07] MEDS: FAMOTIDINE (10MG/ML) 2ML VL IV SCH (09:29)
[2021-09-07 10:06] VITALS: BP 108/64
[2021-09-07 10:58] LABS: INR 1.21 (0.9-1.15)
[2021-09-07] MEDS: DOPamine 1600MCG/ML D5W 250 ML IV SCH (11:15)
[2021-09-07 11:32] LABS: Basophils # (auto) 0 10 ^3/uL (0-0.2); Basophils % (auto) 0.3 % (0.0-2.0); Eosinophils # (auto) 0 10 ^3/uL (0-0.8); Hematocrit 36.5 % (41.0-53.0); Lymphocytes # (auto) 0.8 10 ^3/uL (0.4-5.4); Lymphocytes % (auto) 10.9 % (10.0-50.0); Mean Corpuscular Hemoglobin 28.6 pg (28.0-32.0); Mean Corpuscular Hgb Conc. 32.9 g/dL (32.0-36.0); Mean Corpuscular Volume 87.2 fL (80.0-100.0); Monocytes # (auto) 0.6 10 ^3/uL (0-1.3); Monocytes % (auto) 8.4 % (0.0-12.0); Neutrophils % (auto) 80.4 % (37.0-80.0); Red Blood Cells 4.19 10^6/uL (4.5-5.90); Red Cell Distribution Width 13.7 % (11.8-14.3); White Blood Cell 7.5 10^3/uL (4.4-10.8)
[2021-09-07] MEDS: FREE WATER GT SCH ×2 (12:24→18:48)
[2021-09-07] MEDS: NOREPINEPHRINE 8 MG/250ML KIT 250 ML IV SCH (14:15)
[2021-09-07 14:18] VITALS: BP 111/72
[2021-09-07 16:50] LABS: INR 1.14 (0.9-1.15); Partial Thromboplastin Time 45.6 sec (23.6-33.0)
[2021-09-07] MEDS: HEPARIN DRIP/D5W 100UNITS/ML 250 ML IV SCH (17:30)
[2021-09-07 18:14] LABS: Basophils # (auto) 0 10 ^3/uL (0-0.2); Basophils % (auto) 0.3 % (0.0-2.0); Eosinophils # (auto) 0 10 ^3/uL (0-0.8); Hematocrit 37.7 % (41.0-53.0); Hemoglobin 12.7 g/dL (13.5-17.5); Lymphocytes # (auto) 0.9 10 ^3/uL (0.4-5.4); Lymphocytes % (auto) 9.7 % (10.0-50.0); Mean Corpuscular Hemoglobin 28.9 pg (28.0-32.0); Mean Corpuscular Hgb Conc. 33.7 g/dL (32.0-36.0); Mean Corpuscular Volume 85.8 fL (80.0-100.0); Monocytes # (auto) 0.7 10 ^3/uL (0-1.3); Monocytes % (auto) 7.3 % (0.0-12.0); Neutrophils # (auto) 7.9 10 ^3/uL (1.6-8.6); Neutrophils % (auto) 82.7 % (37.0-80.0); Red Cell Distribution Width 13.6 % (11.8-14.3); White Blood Cell 9.6 10^3/uL (4.4-10.8)
[2021-09-07] MEDS: fentaNYL Drip 2500mCg/250mlNS 250 ML IV SCH (18:42)
[2021-09-07 18:52] VITALS: BP 168/87
[2021-09-07 21:43] VITALS: BP 113/69
[2021-09-07] MEDS: ATORVASTATIN 20 MG TAB PO SCH (22:00)
[2021-09-07] MEDS: INSULIN LANTUS (GLARGINE) 1 /0.01ml (100units/ml) SC SCH (23:30)
[2021-09-08] MEDS: InsuLIN REG 1unit/0.01ml Soln (100units/ml) SC SCH ×5 (00:20→23:08)
[2021-09-08] MEDS: FREE WATER GT SCH ×3 (00:20→11:18)
[2021-09-08] MEDS: ACCU-CHEK COMFORT CURVE STRIP VI SCH ×5 (00:21→23:13)
[2021-09-08] MEDS: ACETAMINOPHEN 325 MG TAB PO PRN ×3 (00:53→12:47)
[2021-09-08 01:46] LABS: INR 1.22 (0.9-1.15)
[2021-09-08 02:09] LABS: Basophils # (auto) 0 10 ^3/uL (0-0.2); Basophils % (auto) 0.1 % (0.0-2.0); Eosinophils # (auto) 0 10 ^3/uL (0-0.8); Hematocrit 38.2 % (41.0-53.0); Hemoglobin 12.6 g/dL (13.5-17.5); Lymphocytes # (auto) 0.9 10 ^3/uL (0.4-5.4); Lymphocytes % (auto) 10.9 % (10.0-50.0); Mean Corpuscular Hemoglobin 28.9 pg (28.0-32.0); Mean Corpuscular Hgb Conc. 33.1 g/dL (32.0-36.0); Mean Corpuscular Volume 87.2 fL (80.0-100.0); Monocytes # (auto) 0.9 10 ^3/uL (0-1.3); Monocytes % (auto) 10.2 % (0.0-12.0); Neutrophils # (auto) 6.7 10 ^3/uL (1.6-8.6); Neutrophils % (auto) 78.8 % (37.0-80.0); Red Blood Cells 4.38 10^6/uL (4.5-5.90); Red Cell Distribution Width 13.8 % (11.8-14.3); White Blood Cell 8.5 10^3/uL (4.4-10.8)
[2021-09-08 02:22] LABS: Partial Thromboplastin Time 73.3 sec (23.6-33.0)
[2021-09-08 02:30] VITALS: BP 115/70
[2021-09-08] MEDS: methylPREDNISolone SOD SUCC 40 MG/ML VL IV SCH ×3 (06:00→21:30)
[2021-09-08] MEDS: FUROSEMIDE 40 MG/4 ML VIAL IV SCH ×3 (06:00→18:00)
[2021-09-08] MEDS: SODIUM CHLOR 0.9% PF (SALINE LOCK) 10ML VIAL/SYR IV SCH ×3 (06:00→21:27)
[2021-09-08 06:28] LABS: Basophils # (auto) 0 10 ^3/uL (0-0.2); Basophils % (auto) 0.2 % (0.0-2.0); Eosinophils # (auto) 0 10 ^3/uL (0-0.8); Hematocrit 38.1 % (41.0-53.0); Hemoglobin 12.6 g/dL (13.5-17.5); Lymphocytes # (auto) 0.9 10 ^3/uL (0.4-5.4); Lymphocytes % (auto) 11.2 % (10.0-50.0); Mean Corpuscular Hemoglobin 28.9 pg (28.0-32.0); Mean Corpuscular Hgb Conc. 33.1 g/dL (32.0-36.0); Mean Corpuscular Volume 87.2 fL (80.0-100.0); Monocytes % (auto) 12.5 % (0.0-12.0); Neutrophils # (auto) 6.1 10 ^3/uL (1.6-8.6); Neutrophils % (auto) 76.1 % (37.0-80.0); Red Blood Cells 4.37 10^6/uL (4.5-5.90); Red Cell Distribution Width 13.7 % (11.8-14.3)
[2021-09-08 06:46] LABS: INR 1.2 (0.9-1.15); Partial Thromboplastin Time 44.1 sec (23.6-33.0)
[2021-09-08 06:47] LABS: BUN/Creatinine Ratio 41.1; Calcium 8.4 mg/dL (8.5-10.1); Potassium 3.5 mmol/L (3.5-5.1)
[2021-09-08 06:55] VITALS: BP 126/76
[2021-09-08] MEDS: NITROGLYCERIN 50MG/250ML 250 ML IV SCH (07:10)
[2021-09-08] MEDS: MIDAZOLAM DRIP 50 mg/50mL 50 ML IV SCH ×2 (08:30→21:33)
[2021-09-08] MEDS: CARVEDILOL 3.125 MG TAB PO SCH ×2 (08:36→21:30)
[2021-09-08] MEDS: ASPirin 81 mg TAB PO SCH (08:36)
[2021-09-08] MEDS: ZINC SULFATE 220mg CAP or TAB PO SCH (08:36)
[2021-09-08] MEDS: FAMOTIDINE (10MG/ML) 2ML VL IV SCH (08:36)
[2021-09-08] MEDS: CLOPIDOGREL BISULFATE 75 MG TAB PO SCH (08:37)
[2021-09-08] MEDS: MULTIPLE VITAMIN TAB PO SCH (08:37)
[2021-09-08] MEDS: ASCORBIC ACID 500 MG TAB PO SCH ×2 (08:38→21:31)
[2021-09-08 10:13] LABS: Urine Bacteria FEW /hpf (None Seen); Urine Blood 3+ /uL (Negative); Urine Hyaline Cast FEW /lpf (0 - 2); Urine Mucus FEW (None Seen); Urine Specific Gravity 1.015 (1.001-1.035); Urine WBC 3 /hpf (0 - 3)
[2021-09-08 10:50] VITALS: BP 139/68
[2021-09-08] MEDS: DOPamine 1600MCG/ML D5W 250 ML IV SCH (11:01)
[2021-09-08] MEDS: fentaNYL Drip 2500mCg/250mlNS 250 ML IV SCH (11:22)
[2021-09-08 12:02] LABS: Basophils # (auto) 0 10 ^3/uL (0-0.2); Basophils % (auto) 0.1 % (0.0-2.0); Eosinophils # (auto) 0 10 ^3/uL (0-0.8); Hematocrit 39.2 % (41.0-53.0); Hemoglobin 12.8 g/dL (13.5-17.5); Lymphocytes # (auto) 0.9 10 ^3/uL (0.4-5.4); Lymphocytes % (auto) 9.6 % (10.0-50.0); Mean Corpuscular Hemoglobin 28.6 pg (28.0-32.0); Mean Corpuscular Hgb Conc. 32.6 g/dL (32.0-36.0); Mean Corpuscular Volume 87.7 fL (80.0-100.0); Monocytes % (auto) 10.5 % (0.0-12.0); Neutrophils # (auto) 7.8 10 ^3/uL (1.6-8.6); Neutrophils % (auto) 79.8 % (37.0-80.0); Red Blood Cells 4.48 10^6/uL (4.5-5.90); Red Cell Distribution Width 13.8 % (11.8-14.3); White Blood Cell 9.7 10^3/uL (4.4-10.8)
[2021-09-08 12:14] LABS: INR 1.23 (0.9-1.15); Partial Thromboplastin Time 60.6 sec (23.6-33.0)
[2021-09-08] MEDS: HEPARIN DRIP/D5W 100UNITS/ML 250 ML IV SCH (12:31)
[2021-09-08] MEDS: NOREPINEPHRINE 8 MG/250ML KIT 250 ML IV SCH (14:15)
[2021-09-08 14:34] VITALS: BP 121/63
[2021-09-08] MEDS: OCTREOTIDE ACETATE 500 MCG in SODIUM CHL 0.9% 99 ML IV SCH (15:15)
[2021-09-08] MEDS: PANTOPRAZOLE 40mg/50ML NS AE 50 ML IV SCH ×2 (15:15→21:21)
[2021-09-08 15:55] LABS: Basophils # (auto) 0 10 ^3/uL (0-0.2); Basophils % (auto) 0.1 % (0.0-2.0); Eosinophils # (auto) 0 10 ^3/uL (0-0.8); Hematocrit 40.6 % (41.0-53.0); Hemoglobin 13.2 g/dL (13.5-17.5); Lymphocytes % (auto) 6.5 % (10.0-50.0); Mean Corpuscular Hemoglobin 28.5 pg (28.0-32.0); Mean Corpuscular Hgb Conc. 32.6 g/dL (32.0-36.0); Mean Corpuscular Volume 87.4 fL (80.0-100.0); Monocytes # (auto) 1.8 10 ^3/uL (0-1.3); Monocytes % (auto) 11.5 % (0.0-12.0); Neutrophils # (auto) 12.5 10 ^3/uL (1.6-8.6); Neutrophils % (auto) 81.9 % (37.0-80.0); Nucleated Red Blood Cells % 0.1 %; Red Blood Cells 4.65 10^6/uL (4.5-5.90); Red Cell Distribution Width 13.9 % (11.8-14.3); White Blood Cell 15.3 10^3/uL (4.4-10.8)
[2021-09-08 16:10] LABS: BUN/Creatinine Ratio 43.5; Calcium 8.6 mg/dL (8.5-10.1); Potassium 3.2 mmol/L (3.5-5.1)
[2021-09-08] MEDS ORDERED: FREE WATER GT SCH (17:00)
[2021-09-08] MEDS ORDERED: PROPOFOL 100 ML IV ONE (17:42)
[2021-09-08] MEDS ORDERED: NOREPINEPHRINE 8 MG/250ML KIT 250 ML IV ONE (18:06)
[2021-09-08 18:50] VITALS: BP 106/87
[2021-09-08 19:10] LABS: Basophils # (auto) 0.1 10 ^3/uL (0-0.2); Basophils % (auto) 0.3 % (0.0-2.0); Eosinophils # (auto) 0 10 ^3/uL (0-0.8); Hematocrit 39.7 % (41.0-53.0); Hemoglobin 12.9 g/dL (13.5-17.5); Lymphocytes # (auto) 1.7 10 ^3/uL (0.4-5.4); Lymphocytes % (auto) 7.4 % (10.0-50.0); Mean Corpuscular Hemoglobin 28.4 pg (28.0-32.0); Mean Corpuscular Hgb Conc. 32.5 g/dL (32.0-36.0); Mean Corpuscular Volume 87.3 fL (80.0-100.0); Neutrophils % (auto) 79.3 % (37.0-80.0); Red Blood Cells 4.54 10^6/uL (4.5-5.90); Red Cell Distribution Width 13.7 % (11.8-14.3); White Blood Cell 22.7 10^3/uL (4.4-10.8)
[2021-09-08] MEDS: SOD CHL 0.45% 1,000 ML IV SCH (21:27)
[2021-09-08] MEDS: ATORVASTATIN 20 MG TAB PO SCH (21:31)
[2021-09-08 21:59] VITALS: BP 130/77
[2021-09-08] MEDS: INSULIN LANTUS (GLARGINE) 1 /0.01ml (100units/ml) SC SCH (22:03)
[2021-09-08 23:01] LABS: Basophils # (auto) 0.1 10 ^3/uL (0-0.2); Eosinophils # (auto) 0 10 ^3/uL (0-0.8); Eosinophils % (auto) 0.1 % (0.0-7.0); White Blood Cell 23.9 10^3/uL (4.4-10.8)
[2021-09-08 23:03] LABS: Basophils % (auto) 0.4 % (0.0-2.0); Hematocrit 41.1 % (41.0-53.0); Hemoglobin 13.5 g/dL (13.5-17.5); Lymphocytes # (auto) 2.3 10 ^3/uL (0.4-5.4); Lymphocytes % (auto) 9.5 % (10.0-50.0); Mean Corpuscular Hemoglobin 28.6 pg (28.0-32.0); Mean Corpuscular Hgb Conc. 32.7 g/dL (32.0-36.0); Mean Corpuscular Volume 87.4 fL (80.0-100.0); Monocytes # (auto) 2.5 10 ^3/uL (0-1.3); Monocytes % (auto) 10.4 % (0.0-12.0); Neutrophils % (auto) 79.6 % (37.0-80.0); Nucleated Red Blood Cells % 0.2 %; Red Cell Distribution Width 13.9 % (11.8-14.3)
[2021-09-08 23:15] LABS: INR 1.12 (0.9-1.15)
[2021-09-09] MEDS: PANTOPRAZOLE 40mg/50ML NS AE 50 ML IV SCH ×5 (02:12→21:44)
[2021-09-09] MEDS: OCTREOTIDE ACETATE 500 MCG in SODIUM CHL 0.9% 99 ML IV SCH ×3 (02:13→14:42)
[2021-09-09 02:34] VITALS: BP 117/71
[2021-09-09] MEDS: FUROSEMIDE 40 MG/4 ML VIAL IV SCH ×2 (05:06→17:54)
[2021-09-09] MEDS: MIDAZOLAM DRIP 50 mg/50mL 50 ML IV SCH ×2 (05:06→14:30)
[2021-09-09] MEDS: SODIUM CHLOR 0.9% PF (SALINE LOCK) 10ML VIAL/SYR IV SCH ×3 (05:07→21:44)
[2021-09-09] MEDS: methylPREDNISolone SOD SUCC 40 MG/ML VL IV SCH ×2 (05:07→21:44)
[2021-09-09] MEDS: ACCU-CHEK COMFORT CURVE STRIP VI SCH ×3 (05:08→18:01)
[2021-09-09] MEDS: NITROGLYCERIN 50MG/250ML 250 ML IV SCH (05:08)
[2021-09-09] MEDS: InsuLIN REG 1unit/0.01ml Soln (100units/ml) SC SCH ×3 (06:00→18:08)
[2021-09-09 06:14] VITALS: BP 108/67
[2021-09-09] MEDS: HEPARIN DRIP/D5W 100UNITS/ML 250 ML IV SCH (07:52)
[2021-09-09] MEDS: ASPirin 81 mg TAB PO SCH ×2 (08:40→13:00)
[2021-09-09] MEDS: ASCORBIC ACID 500 MG TAB PO SCH ×2 (08:41→21:45)
[2021-09-09] MEDS: CLOPIDOGREL BISULFATE 75 MG TAB PO SCH ×2 (08:41→13:00)
[2021-09-09] MEDS: MULTIPLE VITAMIN TAB PO SCH (08:41)
[2021-09-09] MEDS: ZINC SULFATE 220mg CAP or TAB PO SCH (08:41)
[2021-09-09] MEDS: FAMOTIDINE (10MG/ML) 2ML VL IV SCH (09:16)
[2021-09-09] MEDS: DOPamine 1600MCG/ML D5W 250 ML IV SCH (09:17)
[2021-09-09] MEDS: SOD CHL 0.45% 1,000 ML IV SCH ×2 (09:21→11:16)
[2021-09-09] MEDS: CEFTRIAXONE SODIUM 2 GM in D5W 5% 50 ML IV SCH (09:30)
[2021-09-09] MEDS: CARVEDILOL 3.125 MG TAB PO SCH ×2 (09:41→21:44)
[2021-09-09 10:25] VITALS: BP 95/56
[2021-09-09] MEDS: ACETAMINOPHEN 325 MG TAB PO PRN (11:02)
[2021-09-09] MEDS: fentaNYL Drip 2500mCg/250mlNS 250 ML IV SCH (12:15)
[2021-09-09 12:37] LABS: Basophils # (auto) 0 10 ^3/uL (0-0.2); Basophils % (auto) 0.3 % (0.0-2.0); Eosinophils # (auto) 0 10 ^3/uL (0-0.8); Eosinophils % (auto) 0.1 % (0.0-7.0); Hematocrit 36.5 % (41.0-53.0); Hemoglobin 11.8 g/dL (13.5-17.5); Lymphocytes # (auto) 1.7 10 ^3/uL (0.4-5.4); Lymphocytes % (auto) 13.2 % (10.0-50.0); Mean Corpuscular Hemoglobin 28.4 pg (28.0-32.0); Mean Corpuscular Hgb Conc. 32.4 g/dL (32.0-36.0); Mean Corpuscular Volume 87.8 fL (80.0-100.0); Monocytes # (auto) 0.8 10 ^3/uL (0-1.3); Monocytes % (auto) 6.6 % (0.0-12.0); Neutrophils # (auto) 10.2 10 ^3/uL (1.6-8.6); Neutrophils % (auto) 79.8 % (37.0-80.0); Nucleated Red Blood Cells % 0.1 %; Red Blood Cells 4.15 10^6/uL (4.5-5.90); Red Cell Distribution Width 13.8 % (11.8-14.3); White Blood Cell 12.8 10^3/uL (4.4-10.8)
[2021-09-09] MEDS ORDERED: ACETAMINOPHEN 650 MG RECT SUPP PR ONE (12:45)
[2021-09-09 12:51] LABS: INR 1.19 (0.9-1.15)
[2021-09-09 12:56] LABS: BUN/Creatinine Ratio 41.5; Potassium 3.2 mmol/L (3.5-5.1)
[2021-09-09] MEDS: NOREPINEPHRINE 8 MG/250ML KIT 250 ML IV SCH (14:15)
[2021-09-09 15:26] VITALS: BP 104/63
[2021-09-09 16:33] LABS: Basophils # (auto) 0 10 ^3/uL (0-0.2); Basophils % (auto) 0.3 % (0.0-2.0); Eosinophils # (auto) 0 10 ^3/uL (0-0.8); Hematocrit 36.1 % (41.0-53.0); Hemoglobin 11.8 g/dL (13.5-17.5); Lymphocytes # (auto) 1.4 10 ^3/uL (0.4-5.4); Lymphocytes % (auto) 13.1 % (10.0-50.0); Mean Corpuscular Hemoglobin 28.6 pg (28.0-32.0); Mean Corpuscular Hgb Conc. 32.6 g/dL (32.0-36.0); Mean Corpuscular Volume 87.7 fL (80.0-100.0); Monocytes % (auto) 9.5 % (0.0-12.0); Neutrophils # (auto) 8.3 10 ^3/uL (1.6-8.6); Neutrophils % (auto) 77.1 % (37.0-80.0); Nucleated Red Blood Cells % 0.1 %; Red Blood Cells 4.12 10^6/uL (4.5-5.90); Red Cell Distribution Width 13.9 % (11.8-14.3); White Blood Cell 10.8 10^3/uL (4.4-10.8)
[2021-09-09 18:03] VITALS: BP 116/71
[2021-09-09] MEDS ORDERED: D5W 5% 1,000 ML IV SCH (18:15)
[2021-09-09] MEDS: INSULIN LANTUS (GLARGINE) 1 /0.01ml (100units/ml) SC SCH (21:45)
[2021-09-09] MEDS: ATORVASTATIN 20 MG TAB PO SCH (21:45)
[2021-09-09 21:50] VITALS: BP 108/71
[2021-09-09] MEDS: FREE WATER GT SCH (22:10)
[2021-09-10] VITALS (42 sets, daily range): BP systolic 92–129; BP diastolic 62–83
[2021-09-10] MEDS: ACCU-CHEK COMFORT CURVE STRIP VI SCH ×4 (00:13→17:59)
[2021-09-10] MEDS: MIDAZOLAM DRIP 50 mg/50mL 50 ML IV SCH ×3 (00:13→19:43)
[2021-09-10] MEDS: InsuLIN REG 1unit/0.01ml Soln (100units/ml) SC SCH ×4 (00:17→17:59)
[2021-09-10] MEDS: FREE WATER GT SCH ×7 (02:19→21:20)
[2021-09-10] MEDS: HEPARIN DRIP/D5W 100UNITS/ML 250 ML IV SCH ×2 (03:12→19:44)
[2021-09-10] MEDS: PANTOPRAZOLE 40mg/50ML NS AE 50 ML IV SCH ×3 (04:12→10:09)
[2021-09-10] MEDS: ACETAMINOPHEN 325 MG TAB PO PRN (04:53)
[2021-09-10 05:15] LABS: Hematocrit 36.9 % (41.0-53.0); Mean Corpuscular Hemoglobin 28.5 pg (28.0-32.0); Mean Corpuscular Hgb Conc. 32.6 g/dL (32.0-36.0); Mean Corpuscular Volume 87.5 fL (80.0-100.0); Red Blood Cells 4.22 10^6/uL (4.5-5.90); Red Cell Distribution Width 13.9 % (11.8-14.3)
[2021-09-10 05:17] LABS: Basophils % (manual) 0 (0.0-2.0); Blast Cells 0; Eosinophils % (manual) 0 (0-7); Metamyelocytes % 0; Myelocytes % 0; Promyelocytes % 0; Reactive Lymphocytes 0
[2021-09-10 05:34] LABS: BUN/Creatinine Ratio 50.3; Calcium 7.9 mg/dL (8.5-10.1); Potassium 3.2 mmol/L (3.5-5.1)
[2021-09-10] MEDS: FUROSEMIDE 40 MG/4 ML VIAL IV SCH ×2 (06:31→17:58)
[2021-09-10] MEDS: SODIUM CHLOR 0.9% PF (SALINE LOCK) 10ML VIAL/SYR IV SCH ×3 (06:32→21:19)
[2021-09-10 06:38] LABS: Band Neutrophils % (manual) 3; Lymphocytes % (manual) 1 (10.0-50.0); Monocytes % (manual) 5 (0-12)
[2021-09-10] MEDS: NITROGLYCERIN 50MG/250ML 250 ML IV SCH (06:50)
[2021-09-10] MEDS: ZINC SULFATE 220mg CAP or TAB PO SCH (10:55)
[2021-09-10] MEDS: FAMOTIDINE (10MG/ML) 2ML VL IV SCH (10:55)
[2021-09-10] MEDS: methylPREDNISolone SOD SUCC 40 MG/ML VL IV SCH ×2 (10:55→21:19)
[2021-09-10] MEDS: CEFTRIAXONE SODIUM 2 GM in D5W 5% 50 ML IV SCH (10:55)
[2021-09-10] MEDS: ASCORBIC ACID 500 MG TAB PO SCH ×2 (10:56→21:20)
[2021-09-10] MEDS: CARVEDILOL 3.125 MG TAB PO SCH ×2 (10:56→21:20)
[2021-09-10] MEDS: MULTIPLE VITAMIN TAB PO SCH (10:56)
[2021-09-10] MEDS: DOPamine 1600MCG/ML D5W 250 ML IV SCH (12:10)
[2021-09-10] MEDS: NOREPINEPHRINE 8 MG/250ML KIT 250 ML IV SCH (14:15)
[2021-09-10] MEDS: fentaNYL Drip 2500mCg/250mlNS 250 ML IV SCH (14:25)
[2021-09-10 15:19] LABS: Urine WBC None Seen /hpf (0 - 3)
[2021-09-10 15:30] LABS: Urine Bacteria MOD /hpf (None Seen); Urine Blood 2+ /uL (Negative); Urine Mucus FEW (None Seen); Urine Specific Gravity 1.022 (1.001-1.035)
[2021-09-10] MEDS ORDERED: FREE WATER GT SCH (16:30)
[2021-09-10] MEDS ORDERED: VANCOMYCIN PER PHARMACY 0 MG IV SCH (21:00)
[2021-09-10] MEDS ORDERED: VANCOMYCIN 1GM/250ML 250 ML IV ONE (21:00)
[2021-09-10] MEDS: PANTOPRAZOLE 40 MG/10 ML VIAL INJ IV SCH (21:19)
[2021-09-10] MEDS: ATORVASTATIN 20 MG TAB PO SCH (21:20)
[2021-09-10] MEDS: INSULIN LANTUS (GLARGINE) 1 /0.01ml (100units/ml) SC SCH (21:22)
[2021-09-11] VITALS (74 sets, daily range): BP systolic 99–168; BP diastolic 67–95
[2021-09-11] MEDS: InsuLIN REG 1unit/0.01ml Soln (100units/ml) SC SCH ×4 (01:10→18:00)
[2021-09-11] MEDS: FREE WATER GT SCH ×8 (01:36→22:33)
[2021-09-11 04:08] LABS: BUN/Creatinine Ratio 60.7; Calcium 8.2 mg/dL (8.5-10.1)
[2021-09-11] MEDS: MIDAZOLAM DRIP 50 mg/50mL 50 ML IV SCH ×2 (05:44→16:30)
[2021-09-11] MEDS: SODIUM CHLOR 0.9% PF (SALINE LOCK) 10ML VIAL/SYR IV SCH ×3 (05:44→22:29)
[2021-09-11] MEDS: ACCU-CHEK COMFORT CURVE STRIP VI SCH ×4 (05:48→18:00)
[2021-09-11] MEDS: FUROSEMIDE 40 MG/4 ML VIAL IV SCH ×2 (05:48→17:38)
[2021-09-11] MEDS: NITROGLYCERIN 50MG/250ML 250 ML IV SCH (07:15)
[2021-09-11] MEDS: methylPREDNISolone SOD SUCC 40 MG/ML VL IV SCH ×2 (10:38→22:31)
[2021-09-11] MEDS: CEFTRIAXONE SODIUM 2 GM in D5W 5% 50 ML IV SCH (10:38)
[2021-09-11] MEDS: PANTOPRAZOLE 40 MG/10 ML VIAL INJ IV SCH ×2 (10:38→22:29)
[2021-09-11] MEDS: VANCOMYCIN 1GM/250ML 250 ML IV SCH ×2 (10:38→22:28)
[2021-09-11] MEDS: ASPirin 81 mg TAB PO SCH (10:39)
[2021-09-11] MEDS: ZINC SULFATE 220mg CAP or TAB PO SCH (10:39)
[2021-09-11] MEDS: CARVEDILOL 3.125 MG TAB PO SCH ×2 (10:40→22:32)
[2021-09-11] MEDS: CLOPIDOGREL BISULFATE 75 MG TAB PO SCH (10:42)
[2021-09-11] MEDS: ASCORBIC ACID 500 MG TAB PO SCH ×2 (10:42→22:32)
[2021-09-11] MEDS: MULTIPLE VITAMIN TAB PO SCH (10:42)
[2021-09-11] MEDS: DOPamine 1600MCG/ML D5W 250 ML IV SCH (11:15)
[2021-09-11] MEDS: fentaNYL Drip 2500mCg/250mlNS 250 ML IV SCH (12:15)
[2021-09-11] MEDS: MORPHINE SULFATE 4 MG/ML SYR/VIAL IV PRN ×2 (12:40→19:42)
[2021-09-11] MEDS: NOREPINEPHRINE 8 MG/250ML KIT 250 ML IV SCH (14:15)
[2021-09-11] MEDS: HEPARIN DRIP/D5W 100UNITS/ML 250 ML IV SCH (17:40)
[2021-09-11 21:53] LABS: Basophils # (auto) 0.1 10 ^3/uL (0-0.2); Basophils % (auto) 0.3 % (0.0-2.0); Eosinophils # (auto) 0 10 ^3/uL (0-0.8); Hematocrit 41.6 % (41.0-53.0); Hemoglobin 13.4 g/dL (13.5-17.5); Lymphocytes # (auto) 1.4 10 ^3/uL (0.4-5.4); Lymphocytes % (auto) 7.3 % (10.0-50.0); Mean Corpuscular Hemoglobin 28.2 pg (28.0-32.0); Mean Corpuscular Hgb Conc. 32.2 g/dL (32.0-36.0); Mean Corpuscular Volume 87.5 fL (80.0-100.0); Monocytes # (auto) 1.7 10 ^3/uL (0-1.3); Monocytes % (auto) 8.6 % (0.0-12.0); Neutrophils # (auto) 16.2 10 ^3/uL (1.6-8.6); Neutrophils % (auto) 83.8 % (37.0-80.0); Red Blood Cells 4.76 10^6/uL (4.5-5.90); Red Cell Distribution Width 14.2 % (11.8-14.3); White Blood Cell 19.3 10^3/uL (4.4-10.8)
[2021-09-11] MEDS: ATORVASTATIN 20 MG TAB PO SCH (22:32)
[2021-09-11] MEDS: INSULIN LANTUS (GLARGINE) 1 /0.01ml (100units/ml) SC SCH (22:33)
[2021-09-12] VITALS (32 sets, daily range): BP systolic 124–204; BP diastolic 47–155
[2021-09-12] MEDS: ACCU-CHEK COMFORT CURVE STRIP VI SCH ×4 (00:20→17:09)
[2021-09-12] MEDS: InsuLIN REG 1unit/0.01ml Soln (100units/ml) SC SCH ×4 (00:21→17:08)
[2021-09-12] MEDS: FREE WATER GT SCH ×7 (01:27→19:41)
[2021-09-12] MEDS: MIDAZOLAM DRIP 50 mg/50mL 50 ML IV SCH (02:30)
[2021-09-12 03:20] LABS: Basophils # (auto) 0.1 10 ^3/uL (0-0.2); Basophils % (auto) 0.3 % (0.0-2.0); Eosinophils # (auto) 0 10 ^3/uL (0-0.8); Eosinophils % (auto) 0.1 % (0.0-7.0); Hematocrit 41.3 % (41.0-53.0); Hemoglobin 13.3 g/dL (13.5-17.5); Lymphocytes # (auto) 1.1 10 ^3/uL (0.4-5.4); Lymphocytes % (auto) 4.6 % (10.0-50.0); Mean Corpuscular Hemoglobin 28.2 pg (28.0-32.0); Mean Corpuscular Hgb Conc. 32.2 g/dL (32.0-36.0); Mean Corpuscular Volume 87.8 fL (80.0-100.0); Monocytes % (auto) 4.3 % (0.0-12.0); Neutrophils # (auto) 22.1 10 ^3/uL (1.6-8.6); Neutrophils % (auto) 90.7 % (37.0-80.0); Red Blood Cells 4.71 10^6/uL (4.5-5.90); Red Cell Distribution Width 14.2 % (11.8-14.3); White Blood Cell 24.3 10^3/uL (4.4-10.8)
[2021-09-12 03:40] LABS: BUN/Creatinine Ratio 50.6; Calcium 8.3 mg/dL (8.5-10.1); Potassium 3.9 mmol/L (3.5-5.1)
[2021-09-12] MEDS: SODIUM CHLOR 0.9% PF (SALINE LOCK) 10ML VIAL/SYR IV SCH ×3 (05:55→21:07)
[2021-09-12] MEDS: SOD CHL 0.45% 1,000 ML IV SCH ×2 (09:42→20:10)
[2021-09-12] MEDS: FUROSEMIDE 40 MG/4 ML VIAL IV SCH (09:42)
[2021-09-12] MEDS: CARVEDILOL 3.125 MG TAB PO SCH ×2 (09:43→21:08)
[2021-09-12] MEDS: PANTOPRAZOLE 40 MG/10 ML VIAL INJ IV SCH ×2 (09:45→21:07)
[2021-09-12] MEDS: ASPirin 81 mg TAB PO SCH (09:45)
[2021-09-12] MEDS: methylPREDNISolone SOD SUCC 40 MG/ML VL IV SCH (09:45)
[2021-09-12] MEDS: ASCORBIC ACID 500 MG TAB PO SCH ×2 (09:46→21:07)
[2021-09-12] MEDS: CLOPIDOGREL BISULFATE 75 MG TAB PO SCH (09:46)
[2021-09-12] MEDS: MULTIPLE VITAMIN TAB PO SCH (09:46)
[2021-09-12] MEDS: ZINC SULFATE 220mg CAP or TAB PO SCH (09:46)
[2021-09-12] MEDS: ACETAMINOPHEN 325 MG TAB PO PRN (09:53)
[2021-09-12] MEDS: DOPamine 1600MCG/ML D5W 250 ML IV SCH (09:54)
[2021-09-12] MEDS: hydrALAZINE HCL 20 MG/ML VL IV PRN ×2 (10:35→16:36)
[2021-09-12] MEDS ORDERED: CLINIMIX PER PHARMACY 0 ML IV SCH (11:45)
[2021-09-12] MEDS ORDERED: VANCOMYCIN PER PHARMACY 0 MG IV SCH (11:45)
[2021-09-12] MEDS ORDERED: VANCOMYCIN 1GM/250ML 250 ML IV SCH (12:00)
[2021-09-12 13:54] LABS: Magnesium 3.4 mg/dL (1.6-2.6); Phosphorus 4.3 mg/dL (2.5-4.90)
[2021-09-12] MEDS: PENICILLIN G POTASSIUM 3,000,000 UNITS in D5W 5% 50 ML IV SCH ×2 (18:39→21:26)
[2021-09-12] MEDS: METOPROLOL TARTRATE 1MG/1ML-5ML VIAL IV PRN (18:40)
[2021-09-12] MEDS ORDERED: AMINO ACID INFUSION IN D10W 1,000 ML IV NR (20:00)
[2021-09-12] MEDS: ATORVASTATIN 20 MG TAB PO SCH (21:07)
[2021-09-12] MEDS: INSULIN LANTUS (GLARGINE) 1 /0.01ml (100units/ml) SC SCH (21:27)
[2021-09-13] VITALS (23 sets, daily range): BP systolic 121–173; BP diastolic 59–90
[2021-09-13] MEDS: METOPROLOL TARTRATE 1MG/1ML-5ML VIAL IV PRN (00:20)
[2021-09-13] MEDS: ACCU-CHEK COMFORT CURVE STRIP VI SCH ×2 (00:20→06:27)
[2021-09-13] MEDS: InsuLIN REG 1unit/0.01ml Soln (100units/ml) SC SCH ×2 (00:21→06:27)
[2021-09-13] MEDS: FREE WATER GT SCH ×5 (00:22→10:30)
[2021-09-13] MEDS: PENICILLIN G POTASSIUM 3,000,000 UNITS in D5W 5% 50 ML IV SCH ×3 (02:29→10:04)
[2021-09-13] MEDS: MORPHINE SULFATE 4 MG/ML SYR/VIAL IV PRN (02:30)
[2021-09-13 02:37] LABS: Hematocrit 40.4 % (41.0-53.0); Hemoglobin 13.1 g/dL (13.5-17.5); Mean Corpuscular Hemoglobin 28.3 pg (28.0-32.0); Mean Corpuscular Hgb Conc. 32.3 g/dL (32.0-36.0); Mean Corpuscular Volume 87.5 fL (80.0-100.0); Red Blood Cells 4.61 10^6/uL (4.5-5.90); Red Cell Distribution Width 14.1 % (11.8-14.3); White Blood Cell 25.2 10^3/uL (4.4-10.8)
[2021-09-13 02:53] LABS: Albumin 2.2 g/dL (3.4-5.0); BUN/Creatinine Ratio 48.1; Magnesium 3.1 mg/dL (1.6-2.6); Potassium 3.3 mmol/L (3.5-5.1)
[2021-09-13 02:56] LABS: Bilirubin, Total 0.7 mg/dL (0.2-1.0); Phosphorus 2.5 mg/dL (2.5-4.90); Total Protein 5.4 g/dL (6.4-8.2)
[2021-09-13 03:07] LABS: Pre Albumin 21.8 mg/dL (20.0-40.0)
[2021-09-13 03:16] LABS: Basophils % (manual) 0 (0.0-2.0); Blast Cells 0; Eosinophils % (manual) 0 (0-7); Metamyelocytes % 0; Promyelocytes % 0; Reactive Lymphocytes 0
[2021-09-13] MEDS: SODIUM CHLOR 0.9% PF (SALINE LOCK) 10ML VIAL/SYR IV SCH (05:35)
[2021-09-13 05:59] LABS: Band Neutrophils % (manual) 4; Lymphocytes % (manual) 8 (10.0-50.0); Monocytes % (manual) 7 (0-12); Myelocytes % 1
[2021-09-13] MEDS ORDERED: POTASSIUM PHOSPHATE 22 MEQ in SODIUM CHL 0.9% 100 ML IV ONE (09:00)
[2021-09-13] MEDS: PANTOPRAZOLE 40 MG/10 ML VIAL INJ IV SCH (09:57)
[2021-09-13] MEDS: methylPREDNISolone SOD SUCC 40 MG/ML VL IV SCH (09:58)
[2021-09-13] MEDS: ASCORBIC ACID 500 MG TAB PO SCH (09:58)
[2021-09-13] MEDS: FUROSEMIDE 40 MG/4 ML VIAL IV SCH (09:58)
[2021-09-13] MEDS: CLOPIDOGREL BISULFATE 75 MG TAB PO SCH (09:58)
[2021-09-13] MEDS: ZINC SULFATE 220mg CAP or TAB PO SCH (09:58)
[2021-09-13] MEDS: MULTIPLE VITAMIN TAB PO SCH (09:58)
[2021-09-13] MEDS: CARVEDILOL 3.125 MG TAB PO SCH (09:59)
[2021-09-13] MEDS: ASPirin 81 mg TAB PO SCH (09:59)
[2021-09-13] MEDS: SOD CHL 0.45% 1,000 ML IV SCH (10:23)
[2021-09-13] MEDS ORDERED: D5W 5% 1,000 ML IV SCH (10:30)
== END 2021-09-13 15:41 | disposition short-term general hospital (02) | DRG 870 ==
LOC: EDBD 00:52 → ER 00:56 → TELE 00:57 → UNDOADMIN 00:57 → TELE 07:12 → ICU WEST 23:59
PROVIDERS: ADMIT Nurse Practitioner Family; ATTEND Internal Medicine
PROC: 5A09357 Assistance with Respiratory Ventilation, Less than 24 Consecutive Hours, Continuous Positive Airway Pressure (ICD-10-PCS; principal; 2021-09-03)
PROC: 5A1955Z Respiratory Ventilation, Greater than 96 Consecutive Hours (ICD-10-PCS; 2021-09-03)
PROC: 02HV33Z Insertion of Infusion Device into Superior Vena Cava, Percutaneous Approach (ICD-10-PCS; 2021-09-03)
PROC: B548ZZA Ultrasonography of Superior Vena Cava, Guidance (ICD-10-PCS; 2021-09-03)
PROC: 5A12012 Performance of Cardiac Output, Single, Manual (ICD-10-PCS; 2021-09-03)
PROC: 0BH17EZ Insertion of Endotracheal Airway into Trachea, Via Natural or Artificial Opening (ICD-10-PCS; 2021-09-03)
DX: A41.81 Sepsis due to Enterococcus (principal); I21.4 Non-ST elevation (NSTEMI) myocardial infarction; I50.33 Acute on chronic diastolic (congestive) heart failure; J18.9 Pneumonia, unspecified organism; J96.21 Acute and chronic respiratory failure with hypoxia; J96.22 Acute and chronic respiratory failure with hypercapnia; I46.9 Cardiac arrest, cause unspecified; N18.6 End stage renal disease; J44.1 Chronic obstructive pulmonary disease with (acute) exacerbation; E87.0 Hyperosmolality and hypernatremia; I13.2 Hypertensive heart and chronic kidney disease with heart failure and with stage 5 chronic kidney disease, or end stage renal disease; J44.0 Chronic obstructive pulmonary disease with (acute) lower respiratory infection; N17.9 Acute kidney failure, unspecified; K92.2 Gastrointestinal hemorrhage, unspecified; Z20.822 Contact with and (suspected) exposure to COVID-19; E11.65 Type 2 diabetes mellitus with hyperglycemia; I25.10 Atherosclerotic heart disease of native coronary artery without angina pectoris; E66.9 Obesity, unspecified; F12.90 Cannabis use, unspecified, uncomplicated; Z85.820 Personal history of malignant melanoma of skin; D63.1 Anemia in chronic kidney disease; E11.22 Type 2 diabetes mellitus with diabetic chronic kidney disease; Z80.8 Family history of malignant neoplasm of other organs or systems; Z78.1 Physical restraint status; Z83.3 Family history of diabetes mellitus; Z91.15 Patient's noncompliance with renal dialysis; Z95.1 Presence of aortocoronary bypass graft; Z68.26 Body mass index [BMI] 26.0-26.9, adult
CPT/HCPCS: 31500; 36415; 36600; 70450; 71045; 71275; 76775; 80048; 80053; 80061; 81001; 82040; 82570; 82805; 82962; 83525; 83735; 83880; 84100; 84156; 84300; 84478; 84484; 85007; 85025; 85027; 85379; 85610; 85730; 86850; 86900; 86901; 87040; 87070; 87077; 87081; 87086; 87186; 87205; 87426; 92950; 93005; 93306; 93970; 94002; 94003; 94640; 94660; 96365; 96375; C9113; G0378; J0696; J1815; J2250; J2704; J3490; J7060